=== PATIENT | male | born 1980 | race American Indian/Alaskan Native ===

== ENCOUNTER 2017-11-17 03:41 | Emergency (ER) | payer SELFPAY ==
--- NOTE | 2017-11-17 05:51 | Emergency Department Report ---
- General Chief Complaint: Wound/Laceration Stated Complaint: LEFT LEG LACERATION Time Seen by Provider: 11/17/17 05:40 Source: patient Mode of arrival: Ambulatory Limitations: No Limitations - History of Present Illness Initial Comments: 37-year-old -[place] male comes in for a laceration that happened around 2 PM to his left lower leg. Patient reports he ran into the couch would. Patient reports he came in because it kept bleeding. Patient is unaware of his last tetanus shot. Patient reports no past medical history takes no medications on a daily basis and has no known drug allergies. -: days(s) Time: 14:00 (Thursday) Location: other (left lower leg) Extremity Location: Left: Lower Leg Place: home Patient Tetanus UTD: No Context: accidental Associated Symptoms: none - Related Data Allergies Allergy/AdvReac Type Severity Reaction Status Date / Time No Known Allergies Allergy Verified 11/17/17 04:35 ED Review of Systems ROS: Stated complaint: LEFT LEG LACERATION Other details as noted in HPI Comment: All other systems reviewed and negative Skin: other (cut to left lower leg) ED Past Medical Hx - Past Medical History Previous Medical History?: No - Surgical History Past Surgical History?: No - Social History Smoking Status: Never Smoker Substance Use Type: None ED Physical Exam - General Limitations: No Limitations General appearance: alert, in no apparent distress, other (patient stutters) - Head Head exam: Present: atraumatic, normocephalic - Eye Eye exam: Present: EOMI - ENT ENT exam: Present: mucous membranes moist - Neurological Exam Neurological exam: Present: alert, oriented X3 - Psychiatric Psychiatric exam: Present: normal affect, normal mood - Expanded Skin Exam Expanded Type of lesion: Present: laceration Distribution of rash: LLE - Laceration /Wound Repair Left Lower Calf Wound Location: lower extremity (left lower herrera) Wound Length (cm): 2 Wound's Depth, Shape: irregular Irrigated w/ Saline (ccs): 30 Betadine Prep?: Yes Wound Repaired With: Steri-strips Progress: Patient tolerated procedure well ED Medical Decision Making - Medical Decision Making Patient has been evaluated by this provider fast track. It has been greater than 12 hours since laceration had occurred This provider placed 2 Steri-Strips to allow foreskin to be semi-connected and also leave room for any drainage. Discussed the patient he can take [id number] Tylenol or Motrin for pain Critical care attestation.: If time is entered above; I have spent that time in minutes in the direct care of this critically ill patient, excluding procedure time. ED Disposition Clinical Impression: Laceration of lower leg Qualifiers: Encounter type: initial encounter Laterality: left Qualified Code(s): S81.812A - Laceration without foreign body, left lower leg, initial encounter Disposition: DC- TO HOME OR SELFCARE Is pt being admited?: No Does the pt Need Aspirin: No Condition: Stable Instructions: Laceration (ED) Additional Instructions: Please keep area clean and dry. Return back to the emergency room for any signs of infection such as increased pain and swelling, purulent discharge or fever. Referrals: PRIMARY CARE, [Primary Care Provider] - 3-5 Days Forms: Work/School Release Form(ED)
[2017-11-17] MEDS ORDERED: BOOSTRIX IM ONE (05:52)
[2017-11-17 06:03] VITALS: BP 125/73
== END 2017-11-17 06:09 | disposition home or self-care (01) ==
LOC: ED 03:41
DX: S81.812A Laceration without foreign body, left lower leg, initial encounter (principal); W22.8XXA Striking against or struck by other objects, initial encounter; Y93.89 Activity, other specified; Y92.009 Unspecified place in unspecified non-institutional (private) residence as the place of occurrence of the external cause; Y99.8 Other external cause status
CPT/HCPCS: 90471; 90715